=== PATIENT | female | born 1935 | race African-American/Black ===

== ENCOUNTER 2016-11-03 07:08 | Emergency (ER) | payer MEDICARE ==
[~2016-11-03 07:08] MED LIST: ASA CHILDREN'S81 MG PO; CALTRATE-600 D600 MG PO; COLACE-DPS100 MG PO; ECOTRIN-DPS325 MG PO; ELAVIL-DPS50 MG PO; KLOR-CON20 MEQ PO; LASIX DPS20 MG PO; LASIX40 MG PO; LIPITOR DPS40 MG PO; LOVENOX DP30 MG/0.3 SQ; MAALOX DPS30 ML PO; METAMUCIL PACK3.4 GM PO; MIRALAX17 GM PO; PAROXETINE 40 MG PO; PAXIL40 MG PO; PRILOSEC DPS20 MG PO; PROTONIX40 MG PO; SURFAK DPS240 MG PO; TOPROL PO; TOPROL XL DPS50 MG PO; TYLENOL #3 DPS1 TAB PO; TYLENOL DPS325 MG PO; TYLENOL PO; VITAMIN E400 UNI2 PO; XALATAN2.5 ML OU; XANAX0.25 MG PO; ZESTRIL DPS10 MG PO; ZESTRIL20 MG PO; ZOFRAN4 MG PO; [UNRECOGNIZED DRUG - OTHER] IM
--- NOTE | 2016-11-07 15:59 | ER ---
ADMIT: 11/03/2016 RM/LOC: ER [facility] MR#: [id number] [facility] [address] [place] [address] Emergency Room Report SEX: F AGE: 80 : 1935 DATE: 11/03/2016 ADDENDUM: This 80-year-old black female coming in with right lower quadrant pain. Essentially she has clinical diverticulitis. You can see diverticulosis on the CT scan. CBC and chemistry looks okay. At this time, we gave her little Dilaudid that helped. We are going to discharge her back to her assisted living. We will put her on Levaquin 500 daily, Flagyl t.i.d. 500, both for 7 days and gave her few [place] 5/325 about 10, one every 6 hours as needed. She should follow up with Dr. Franklin next week p.r.n. CONDITION ON DISCHARGE: Good. Dmitri Renner MD/ [place] JOB #: [id number] CC: Dmitri Renner MD, Attending Physician Lloyd Franklin MD, Family Physician
== END 2016-11-03 11:00 | disposition home or self-care (01) ==
LOC: ER 07:08
DX: K57.32 Diverticulitis of large intestine without perforation or abscess without bleeding (principal); I10 Essential (primary) hypertension; D64.9 Anemia, unspecified; E78.00 Pure hypercholesterolemia, unspecified

== ENCOUNTER 2017-03-18 10:01 | Emergency (ER) | payer MEDICARE ==
--- NOTE | 2017-04-07 15:42 | ER ---
ADMIT: 03/18/2017 RM/LOC: [facility] MR#: [id number] [address] [place] [address] Emergency Room Report SEX: F AGE: 81 : 1935 DATE: 03/18/2017 An 81-year-old female who twisted her right ankle this past Saturday. She comes to the emergency department with continued pain and swelling in the right ankle. See T sheet for history and physical. X-ray reveals a questionable spiral fracture of the fibula. She will be treated as an ankle fracture, given a boot and Velarde. Instructed to follow up with Orthopedics this week. DIAGNOSIS: Ankle fracture. Juanito Morejon MD/ [place] JOB #: [id number] CC: Juanito Morejon MD, Attending Physician Lloyd Franklin MD, Family Physician
== END 2017-03-18 11:09 | disposition home or self-care (01) ==
LOC: ER 10:01
DX: S82.891A Other fracture of right lower leg, initial encounter for closed fracture (principal); I10 Essential (primary) hypertension; Z88.5 Allergy status to narcotic agent; X50.1XXA Overexertion from prolonged static or awkward postures, initial encounter; Y92.009 Unspecified place in unspecified non-institutional (private) residence as the place of occurrence of the external cause